=== PATIENT | male | born 1950 | race Caucasian/White ===

== ENCOUNTER 2018-09-10 00:35 | Inpatient (IN) | payer MEDICARE, MEDICAID ==
[2018-09-10] VITALS (15 sets, daily range): BP systolic 96–119; BP diastolic 38–70; BMI 26.3
[~2018-09-10] VITALS: Ht 167.6 cm; Wt 73.9 kg
--- NOTE | ~2018-09-10 | HEMODYNAMI ---
PATIENT:GENE PEREZ MEDICAL RECORD: [id number] : 50 [facility] [id number] ADMISSION DATE: 09/10/18 Generatedon:09/10/20182:31 Patient name: GENE PEREZ Patient #: [id number] SSN: : 1950 Date of study: 09/10/2018 Page: Of Hemodynamic Procedure Report Patient Data Patient Demographics Procedure consent was obtained First Name: GENE Gender: Male Last Name: CHRIS : 1950 Patient #: [id number] Age: 68 year(s) Race: Unknown Additional ID: [id number] Contact details Address: [address] [place] [address] ROAD State: [place] City: [place] Zip code: [address] Past Medical History Allergies: No known allergies Admission Admission Data Admission Date: 09/10/2018 Admission Time: 0:35 Admit Source: Emergency department Procedure Procedure Types Cath Procedure Diagnostic Procedure [facility] w/Coronaries Temporary Pacemaker PCI Procedure AMI/SVG/APPEALS SPECIALIST PTCA or Stent AMI-BMS/VIANEY Initial Procedure Description Procedure Date Procedure Date: 09/10/2018 Procedure Start Time: 1:52 Procedure End Time: 2:20 Procedure Staff Name Function Ron Muller MD Performing Physician Ruthy Tatum RT Monitor Fay Herbert RN Nurse Js Thornton RT Scrub Procedure Data Cath Procedure Fluoroscopy Diagnostic fluoroscopy Total fluoroscopy Time: 4.9 time: 4.9 min min Diagnostic fluoroscopy Total fluoroscopy dose: 418 dose: 418 mGy mGy Contrast Material Contrast Material Type Amount (ml) Isovue 300 0 Entry Location Entry Primary Successful Side Size Upsize Upsize Entry Closure Succes sful Closure Location (Fr) 1 (Fr) 2 (Fr) Remarks Device Remarks Femoral Right 6 Fr Exoseal artery Short Femoral Right 6 Fr vein Short Estimated blood loss: 10 ml Diagnostic catheters Device Type Used For End Catheter Placement MULTIPACK JL 4.0 5Fr Procedure catheter MULTIPACK 3DRC 5Fr Procedure catheter MULTIPACK Pigtail 5 Fr Procedure catheter Procedure Complications No complications Procedure Medications Medication Administration Route Dosage Oxygen NRB 16 l/min Lidocaine 2% added to field 20 Heparin Flush Bag added to field 2 bags (1000units/500ml NS) 0.9% NaCl I.V. bolus 500 ml Dopamine I.V. drip 10 mcg/kg/min (400mg/250ml D5W) Integrilin (Bolus I.V. 6.8 ml 2mg/ml) Atropine I.V. 1 mg Heparin Bolus I.V. 3000 units Phenergan 25 mg Hemodynamics Rest Heart Rate: 60 (bpm) Pressure Samples Time Site Value (mmHg) Purpose Heart Use Rate(bpm) 2:13 LV 126/10,12 Snapshot 145 2:13 AO 115/62(89) Pullback 133 2:13 LV 120/15,20 Pullback 133 Gradients Valve Time Site 1 Site 2 Mean SEP/DFP Peak To Heart Use (mmHg) (sec/min) Peak Rate (mmHg) (bpm) Aortic 2:13 LV AO 8 15 5 133 120/15,20 115/62(89) Calculations Valve P-P Mean Valve Index Valve Source Name Gradient Area Flow (cm2) Aortic 5 8 5 8 Snapshots Pre Cath Intra NCS Post Cath Vital Signs Time Heart Resp SPO2 NIBP Rhythm Pain Sedation Rate (ipm) (%) (mmHg) Status Level (bpm) 1:53:18 59 21 99 116/53(75) NSR 0 (11) 10(A) , No pain 1:57:32 80 25 100 95/49(68) NSR 0 (11) 10(A) , No pain 2:01:37 80 23 100 102/55(73) NSR 0 (11) 10(A) , No pain 2:06:41 122 30 100 112/60(77) NSR 0 (11) 10(A) , No pain 2:10:57 106 24 100 87/45(69) NSR 0 (11) 10(A) , No pain 2:15:43 136 32 100 128/84(99) NSR 0 (11) 10(A) , No pain 2:19:55 134 28 100 132/66(93) NSR 0 (11) 10(A) , No pain Medications Time Medication Route Dose Verified Delivered Reason No ashtyn Effectiveness by by 1:31:05 0.9% NaCl I.V. 500 ml Ron Aponte Per physician bolus [facility] Arcadio Herbert RN, MD 1:31:42 Oxygen NRB 16 l/min Ron Aponte for low [address] Arcadio Herbert RN, MD 1:31:51 Lidocaine 2% added 20ml vial Ron Velasquez for local to [facility] anesthetic field MD MOY 1:31:56 Heparin Flush added 2 bags Ron Velasquez used for Bag to [facility] procedure (1000units/500ml field MD MOY NS) 1:54:58 Dopamine I.V. 10 Ron Aponte Per physician (400mg/250ml drip mcg/kg/min [facility] Arcadio Herbert RN D5W) 1:59:58 Integrilin I.V. 6.8 ml Ron Aponte for Wa sted (Bolus 2mg/ml) [facility] Arcadio Herbert RN antiplatelet 3.2 ml therapy of vial 2:04:45 Atropine I.V. 1 mg Ron Aponte Per physician [facility] Arcadio Herbert RN, MD 2:09:56 Heparin Bolus I.V. 3000 units Ron Aponte for ve rified [facility] Arcadio Herbert RN anticoagulation with dr MD samuels 2:23:37 Phenergan I.M. 25 mg Ron Aponte for vomiting to lt [facility] Arcadio Herbert RN gm Procedure Log Time Note 1:17:01 Admit Source: Emergency department 1:30:36 Diagnostic Cath status Emergency 1:30:38 Fay Herbert RN sent for patient. Start room use. 1:30:40 Time tracking: Call back (After hours or weekends) 1:30:46 Plan of Care:Hemodynamics will remain stable., Cardiac rhythm will remain stable., Comfort level will be maintained., Respiratory function will remain adequate., Patient/ family verbilizes understanding of procedure., Procedure tolerated without complication., Recovers from procedure without complications.. 1:30:48 Patient arrives emergently. 1:30:52 Patient received from ED to CCL 1 Alert and oriented. Tansferred to table in Supine position. 1:30:54 Warm blankets applied, and shashi hugger turned on for patient comfort. 1:30:54 Correct patient and procedure confirmed by team. 1:30:56 Signed procedure consent form obtained from patient. 1:31:02 H&P Date Dictated: 09/10/2018 Emergent; H&P N/A. 1:31:05 0.9% NaCl 500 ml I.V. bolus was administered by Fay Herbert RN; Per physician; 1:31:05 Pre-procedure instructions explained to patient. 1:31:24 Use device set Femoral Dx 1:31:26 ACIST Syringe (67113) opened to sterile field. 1:31:26 Bag Decanter (2002S) opened to sterile field. 1:31:27 Medline Cath Pack ([id number]) opened to sterile field. 1:31:27 DIAGNOSTIC WIRE .035 260cm J wire (392408) opened to sterile field. 1:31:29 ACIST Hand Control (96733) opened to sterile field. 1:31:29 ACIST Manifold (19316) opened to sterile field. 1:31:38 Tegaderm 4 x 4 (1626W) opened to sterile field. 1:31:40 DIAGNOSTIC Multipack 5Fr catheter set (BQ9073) opened to sterile field. 1:31:42 Oxygen 16 l/min NRB was administered by Fay Herbert RN; for low 02 sats; 1:31:51 Lidocaine 2% 20ml vial added to field was administered by Ron Muller MD; for local anesthetic; 1:31:56 Heparin Flush Bag (1000units/500ml NS) 2 bags added to field was administered by oRn Muller MD; used for procedure; 1:32:03 WHISPER 300cm guide wire ([id number]) opened to sterile field. 1:32:04 INFLATOR Merit BasixCompak (CG0706) opened to sterile field. 1:32:05 SHEATH 6FR [place] (AFN265) opened to sterile field. 1:50:21 ECG and BP/O2 sat monitors applied to patient. 1:50:22 Vital chart was started 1:50:23 Baseline sample Acquired. 1:50:31 Rhythm: paced 1:50:32 Full Disclosure recording started 1:50:37 Family unavailable. 1:50:49 Patient allergic to No known allergies 1:50:52 Was the patient premedicated? Yes 1:50:56 Is patient on blood thinner?No 1:50:59 Patient diabetic? No. 1:51:48 Snore? Yes 1:51:49 Sleep apnea? No 1:51:58 Patient pain scale 5/10 ?. 1:52:16 IV patent on arrival in Right upper arm with 0.9% NaCl at O. 1:52:24 Lab results completed and on chart, pending. 1:52:29 Right groin area was prepped with chlora-prep and draped in sterile fashion 1:52:30 Alarms reviewed by R. N. 1:52:30 Sharps counted by scrub and verified by R.N. 1:52:32 Physician arrived 1:52:32 --------ALL STOP TIME OUT------ 1:52:34 Final Timeout: patient, procedure, and site verified with staff and physician. All members of the team are in agreement. 1:52:36 Right groin site verified by team. 1:52:42 Physical assessment completed. ASA score P 4 - A patient with severe systemic disease that is a constant threat to life as per Ron Muller MD. 1:52:51 Procedure started. 1:52:56 Local anesthetic to right femoral artery with Lidocaine 2% by Ron Muller MD.INITIAL ACCESS ONLY 1:53:05 A 6 Fr Short sheath was inserted into the Right Femoral artery 1:54:25 A 6 Fr Short sheath was inserted into the Right Femoral vein 1:54:29 J wire advanced. 1:54:35 5Fr J Tip Temporary Pacing Catheter ([id number]) opened to sterile field. 1:54:52 Temporary pacer inserted 1:54:58 Dopamine (400mg/250ml D5W) 10 mcg/kg/min I.V. drip was administered by Fay Herbert RN; Per physician; 1:55:36 SHEATH 6FR [place] (WUD863) opened to sterile field. 1:57:42 Temporary pacer turned on with the following settings: Rate 80, MA 2, Mode: Demand. 1:59:14 A MULTIPACK JL 4.0 5Fr catheter was advanced over the wire and used for Procedure. 1:59:18 LCA angiography performed. 1:59:41 Catheter removed. 1:59:49 A MULTIPACK 3DRC 5Fr catheter was advanced over the wire and used for Procedure. 1:59:52 RCA angiography performed. 1:59:58 Integrilin (Bolus 2mg/ml) 6.8 ml I.V. was administered by Fay Herbert RN; for antiplatelet therapy; Wasted 3.2 ml of vial 2:00:45 Catheter removed. 2:02:02 GUIDE 6FR HS I SH catheter ([id number]) opened to sterile field. 2:02:27 6 Fr HS1SH guide catheter was inserted over the wire 2:02:32 Whisper wire advanced. 2:02:36 Wire advanced across lesion. 2:03:00 Inflate balloon Inflation number: 1 A EMERGE OTW 2.5 x 30 balloon ([id number]) was prepped and advanced across the Mid RCA, then inflated to 14 ELLI for 0:15 (min:sec). 2:04:45 Atropine 1 mg I.V. was administered by Fay Herbert RN; Per physician; 2:05:46 Balloon removed over the wire. 2:07:41 Place stent Inflation Number: 2 A INTEGRITY OTW 3.5 X 30 stent ([id number]) was prepped and advanced across the Mid RCA. The stent was deployed at 14 ELLI for 0:14 (min:sec). 2:09:13 Stent catheter was removed intact over wire. 2:09:56 Heparin Bolus 3000 units I.V. was administered by Fay Herbert RN; for anticoagulation; verified with dr samuels 2:10:11 Place stent Inflation Number: 1 A INTEGRITY OTW 3.5 X 18 stent ([id number]) was prepped and advanced across the Prox RCA. The stent was deployed at 14 ELLI for 0:11 (min:sec). 2:11:13 Stent catheter was removed intact over wire. 2:11:21 Guide catheter removed. 2:11:31 A MULTIPACK Pigtail 5 Fr catheter was advanced over the wire and used for Procedure. 2:11:35 LV angiography performed. 2:11:38 LV gram done using GARCIA 2:11:40 EF : 50 % 2:13:43 EXOSEAL 6Fr (EX600) opened to sterile field. 2:13:52 Catheter exchanged over wire. 2:14:06 Sheath removed intact; hemostasis achieved with Exoseal to the Right Femoral artery. 2:14:37 Procedure ended.(Physican Out) 2:14:43 Fluoroscopy time 04.90 minutes. 2:14:48 Flurop Dose total: 418 2:14:48 Fluoroscopy dose: 418 mGy 2:15:30 Contrast amount:Isovue 300 0ml. 2:16:18 Insertion/operative site no bleeding no hematoma. 2:16:35 Post-procedure physical assessment completed. ASA score P 4 - A patient with severe systemic disease that is a constant threat to life as per Ron Muller MD. 2:17:12 Post procedure rhythm: paced 2:17:15 Estimated blood loss: 10 ml 2:17:19 Post procedure instruction explained to patient.Patient verbalizes understanding. 2:18:01 Procedure type changed to Cath procedure, Diagnostic procedure, LHC, LHC w/Coronaries, Temporary Pacemaker, PCI procedure, AMI/SVG/APPEALS SPECIALIST PTCA or Stent, AMI-BMS/VIANEY Initial 2:18:13 Procedure and supply charges have been captured, reviewed, submitted and are correct. 2:19:37 Procedure Complication : No complications 2:19:48 Vital chart was stopped 2:19:55 venous line was sutured in with 2'0. 2:19:58 Pt has continued to vomit after 8 mg of zofran, and 1 mg of atropine. 2:20:04 See physician's report for complete and final results. 2:20:09 Report given to CVICU. 2:20:15 Patient transfered to CVICU with Bed. 2:20:17 Procedure ended. 2:20:17 Full Disclosure recording stopped 2:20:21 End room use (Document Last) 2:20:33 ACC-PCI Only Patient was given prescriptions, or instructed by Ron Muller MD to start/continue the following medications upon discharge: Plavix 2:23:16 Temp pacer line sutured in 2:23:37 Phenergan 25 mg I.M. to lt gm was administered by Fay Herbert RN; for vomiting; Intervention Summary Intervention Notes Time ActionType Lesion and Equipment Action# Pressure Duration Attributes Used 2:03:00 Inflate Mid RCA EMERGE OTW 1 14 00:15 balloon 2.5 x 30 balloon ([id number]) 2:07:41 Place stent Mid RCA INTEGRITY 2 14 00:14 OTW 3.5 X 30 stent ([id number]) 2:10:11 Place stent Prox RCA INTEGRITY 1 14 00:11 OTW 3.5 X 18 stent ([id number]) Device Usage Item Name Manufacture Quantity Catalog Number Hospital Part Current Min imal Lot# / Charge Number Stock Stock Serial# Code ACIST Acist 1 77065 371651 483483 455041 20 Syringe Medical (90227) Systems Inc Bag Decanter Microtek 1 775468 97810 091303 5 () Medical Inc. Medline Cath Medline 1 [id number] 662440 60132 158371 5 Pack ([id number]) DIAGNOSTIC [facility] 1 533860 167073 033829 041803 30 WIRE .035 260cm J wire (741033) ACIST Hand Acist 1 96445 832463 925772 850565 5 Control Medical (57464) Systems Inc ACIST Acist 1 05035 414401 526103 865596 5 Manifold Medical (18086) Systems Inc Tegaderm 4 x 3M 1 1626W 513787 806294 726342 5 4 (1626W) DIAGNOSTIC Cardinal 1 GB2339 372744 31427 020323 30 Multipack Health 5Fr catheter set (ZB9659) WHISPER [place] 1 [id number] 873015 404777 752241 5 300cm guide Vascular wire ([id number]) INFLATOR Trice Imaging 1 ON9184 110382 048116 922763 15 EcoVadis BasixCompak (DC2504) SHEATH 6FR Terumo 2 YZK062 401611 021283 293558 40 [place] (SAP395) MULTIPACK JL Cardinal 1 833396 5 4.0 5Fr Health catheter MULTIPACK Cardinal 1 813690 5 3DRC 5Fr Health catheter GUIDE 6FR HS Medtronic 1 [id number] 370353 02535 663202 1 I SH catheter (FN1IPDWN) EMERGE OTW [place] 1 [id number] 332542 973059 635894 5 2.5 x 30 Scientific balloon ([id number]) INTEGRITY Medtronic 1 [id number] 315415 599989 3 [id number] OTW 3.5 X 30 stent ([id number]) INTEGRITY Medtronic 1 [id number] 378212 430283 1 [id number] OTW 3.5 X 18 stent ([id number]) MULTIPACK Cardinal 1 302969 5 Pigtail 5 Fr Health catheter EXOSEAL 6Fr Cardinal 1 EX600 663305 617886 704398 10 (EX600) Health 5Fr J Tip Jean-Baptiste 1 [id number] 421792 81017 981886 2 Temporary Lifesciences Pacing Catheter ([id number]) Signature Audit [place] Stage Time Signature Unsigned Intra-Procedure 09/10/2018 Ruthy Tatum 2:31:21 AM RT(R) Signatures Monitor : Ruthy Tatum Signature : RT Date : Time : [address] [address]
[2018-09-10] MEDS ORDERED: PLAVIX75 MG PO (00:38)
[2018-09-10 01:13] LABS: BASOPHILS 0.3 % (0-2); EOSINOPHILS 0.8 % (0-7); HEMATOCRIT 44.6 % (42.0-54.0); HEMOGLOBIN 15.2 g/dL (13.5-17.5); IMMATURE GRANULOCYTES 0.6 % (0-5); LYMPHOCYTES 22.1 % (15-50); MCH 34.5 pg (26.0-34.0); MCHC 34.1 g/dL (31.0-37.0); MCV 101.4 fL (80.0-100.0); MEAN PLATELET VOLUME 10.4 fL (7.4-10.4); MONOCYTES 8.3 % (2-11); NEUTROPHILS 67.9 % (40-80); PLATELET COUNT 249 10x3/uL (130-400); RDW 12.2 % (11.5-14.5); WBC 18.6 10x3/uL (4.8-10.8)
[2018-09-10 01:21] LABS: INR 1.03 (0.85-1.17)
[2018-09-10 01:27] LABS: ALBUMIN 3.5 g/dL (3.4-5.0); ALKALINE PHOSPHATASE 90 U/L (46-116); ALT (SGPT) 19 U/L (10-68); BILIRUBIN - TOTAL 0.24 mg/dL (0.2-1.3); CALC OSMOLALITY 285 mosm/kg (275-300); CALCIUM 9.2 mg/dL (8.5-10.1); CARBON DIOXIDE 20.2 mmol/L (21.0-32.0); CHLORIDE - SERUM 103 mmol/L (98-107); CREATININE - SERUM 1.4 mg/dL (0.6-1.3); GLUCOSE 183 mg/dL (74-106); PROTEIN - SERUM 7.2 g/dL (6.4-8.2); SODIUM 140 mmol/L (136-145); UREA NITROGEN 19 mg/dL (7-18); eGFR NON AFRICAN AMERICAN 53 mL/min (90-120)
[2018-09-10 01:44] LABS: CKMB 1.4 U/L (0.0-3.6); CREATINE KINASE 75 UL (21-232); MAGNESIUM - SERUM 2.2 mg/dL (1.8-2.4)
[2018-09-10 01:49] LABS: APTT > 200.0 SECONDS (22.8-39.4)
[2018-09-10 08:05] LABS: BASOPHILS 0.1 % (0-2); EOSINOPHILS 0 % (0-7); HEMOGLOBIN 12.7 g/dL (13.5-17.5); IMMATURE GRANULOCYTES 0.3 % (0-5); LYMPHOCYTES 6.3 % (15-50); MCHC 33.4 g/dL (31.0-37.0); MCV 101.6 fL (80.0-100.0); MONOCYTES 10.3 % (2-11); RBC 3.74 10x6/uL (4.20-6.10); RDW 12.4 % (11.5-14.5)
[2018-09-10 08:09] LABS: ALBUMIN 2.7 g/dL (3.4-5.0); ANION GAP 12.2 mmol/L (8-16); BILIRUBIN - TOTAL 0.32 mg/dL (0.2-1.3); CALCIUM 7.5 mg/dL (8.5-10.1); CARBON DIOXIDE 24.2 mmol/L (21.0-32.0); CREATININE - SERUM 1.1 mg/dL (0.6-1.3); PLATELET COUNT 171 10x3/uL (130-400); POTASSIUM - SERUM 4.4 mmol/L (3.5-5.1); PROTEIN - SERUM 5.7 g/dL (6.4-8.2); WBC 9.9 10x3/uL (4.8-10.8)
--- NOTE | 2018-09-10 09:05 | OP ---
PATIENT NAME: GENE PEREZ MEDICAL RECORD: [id number] :50 LOCATION:[facility] ADMISSION DATE:09/10/18 SURGEON: ZIGGY YOUNG MD DATE OF OPERATION: 09/10/2018 PROCEDURE: Temporary pacemaker, left heart catheterization, and PTCA stenting to the right coronary artery. DESCRIPTION OF PROCEDURE: TEMPORARY PACEMAKER: After the right femoral vein was cannulated via modified Seldinger technique under fluoroscopic guidance, we placed the temporary pacing wire up into the right ventricular apex. After adequate thresholds were obtained, this was sutured in place, sed rate of 80, output of 2. Left heart catheterization, selective coronary angiography, right femoral artery approach. CATHETERS: A 6-Luxembourger sheath, 5/4 left and right Tess, 5/4 pig. The procedure was well tolerated. We proceeded to urgent PTCA stenting. FINDINGS: Left ventriculography shows inferobasal hypokinesis. Overall LV function; however, preserved at 50%. CORONARY ANATOMY: LEFT MAIN: Left main is free of disease. CIRCUMFLEX: Has a mid portion stenosis about 80%. RIGHT CORONARY ARTERY: Totally occluded, obviously infarct related artery. PLAN: Intervention to the right. DESCRIPTION: A hockey stick guide catheter provided good guide catheter followed by 300 cm Whisper wire was placed across the totally occluded right down this portion of the vessel. Pre-deployment balloon was a 2.5 x 20 mm Hays up to 14 atmospheres. This showed yazidism of CORINA flow from 0 to 3. Next, stents were placed in the following fashion: 3.5 x 30 mm Integrity followed by a 3.5 x 18 mm Integrity both stents up to 14 atmospheres for 45 seconds. Final angiography shows excellent resolution of total occlusion, no signal residual. CORINA flow improved from 0 to 3. Sheath closed with ExoSeal device. Temporary pacer will be closed hopefully in the next 12-18 hours as AV conduction returns. TRANSINT:[id number] Voice Confirmation ID: [id number] DOCUMENT ID: [id number] ZIGGY YOUNG MD at 0905 CC: [id number] DICTATION DATE: 09/10/18 0228 FAMILY SERVICES ASSISTANT: 09/10/18 0737 [facility] IN [place] [id number] [place] [address]
--- NOTE | 2018-09-10 09:05 | HP ---
PATIENT: GENE PEREZ MEDICAL RECORD: [id number] ACCOUNT: [id number] [facility] ADMISSION DATE: 09/10/18 PCP: JADON LEON HISTORY AND PHYSICAL EXAMINATION HISTORY OF PRESENT ILLNESS: History mostly was taken from the ER physician. A 68-year-old gentleman with history of coronary artery disease, status post intervention previously at the [facility]. Found down at home, found to be in a complete heart block with inferior ST-segment elevation. He was brought to lab tester on an emergent basis for temporary pacing, revascularization as indicated. PHYSICAL EXAMINATION: GENERAL: Shows an unkempt middle-aged gentleman, in moderate distress. HEENT: Normocephalic and atraumatic. Pallor is noted. NECK: JVD with tuttle A waves. HEART: Intermittently eugenia. He had a II/ systolic ejection murmur. LUNGS: Fair air excursion. EXTREMITIES: Pulses, minimally palpable. No edema. IMPRESSION: Inferior myocardial infarction and a complete heart block. Pacemaker intervention as indicated. TRANSINT:[id number] Voice Confirmation ID: [id number] DOCUMENT ID: [id number] ZIGGY YOUNG MD at 0905 CC: [id number] DICTATION DATE: 09/10/18224 UTILITY SYSTEMS REPAIRER OPERATOR: 09/10/18 0617 ADM IN [place] [id number] [place] [address]
--- NOTE | 2018-09-10 12:08 | MORECARE ---
CASE MANAGEMENT DISCHARGE SUMMARY PATIENT: GENE PEREZ UNIT: [id number] ADM DATE: 09/10/18 AGE: 68 : 50 SEX: M [facility] AUTHOR: CARROLL MTZ PHYSICIAN: REFERRING PHYSICIAN: ZIGGY YOUNG MD DATE OF SERVICE: 09/10/18 Discharge Plan Patient Name: GENE PEREZ [facility] [facility] 1950 Planned Disposition: Home Anticipated Discharge Date: Discharge Date: Expected LOS: Initial Reviewer: [email or web address] Initial Review Date: 09/10/2018 Generated: 09/10/18 1:08 pm DCPIA - Discharge Planning Initial Assessment Updated by [email or web address]: Emelina Angeles on 09/10/18 12:07 pm * Is the patient Alert and Oriented? Yes * How many steps to enter\exit or inside your home? * PCP Dr. Darrel Parker * Pharmacy [facility] [address] * Preadmission Environment Home Alone * ADLs Independent * Equipment None * List name and contact numbers for known caregivers / representatives who currently or will assist patient after discharge: Karely Raya [phone] * Verbal permission to speak to the caregivers and representatives has been obtained from the patient. N/A * Community resources currently utilized None * Additional services required to return to the preadmission environment? No * Can the patient safely return to the preadmission environment? Yes * Has this patient been hospitalized within the prior 30 days at any hospital? No Patient Name: GENE PEREZ Page 48640 at 1208 All edits/amendments must be made on the electronic document DICTATION DATE: 09/10/18 1207 FOSTER CARE SOCIAL WORKER: CONNOR 09/10/187 RPT#: [id number] DC DATE: STATUS: ADM IN [facility] [address] [place] [address] END OF REPORT
--- NOTE | 2018-09-10 12:21 | MORECARE ---
CASE MANAGEMENT DISCHARGE SUMMARY PATIENT: GENE PEREZ UNIT: [id number] ADM DATE: 09/10/18 AGE: 68 : 50 SEX: M ROOM/BED: [facility] AUTHOR: BIBI,DOC PHYSICIAN: REFERRING PHYSICIAN: ZIGGY YOUNG MD DATE OF SERVICE: 09/10/18 Discharge Plan Patient Name: GENE PEREZ Facility: [facility]:[place] : 1950 Planned Disposition: Home Anticipated Discharge Date: Discharge Date: Expected LOS: Initial Reviewer: [email or web address] Initial Review Date: 09/10/2018 Generated: 09/10/18 1:21 pm Comments DCP- Discharge Planning Updated by [email or web address]: Emelina Angeles on 09/10/18 11:[address] Patient Name: GENE PEREZ Admission Status: ER Accout number: [id number] Admission Date: 09-10-2018 : 1950 Admission Diagnosis: Attending: ZIGGY YOUNG Current LOS: 1 Anticipated DC Date: Planned Disposition: Home Primary Insurance: [facility] MEDIC[facility] SOLUTIONS Discharge Planning Comments: CM met with patient at bedside. Patient states he lives alone and is independent of ADL's. Patient states he will have a friend pick him up via private vehicle. Patient denies any discharge needs at this time. CM will continue to follow and assist as needed with discharge planning / needs. Light Cleaner: Emelina Angeles DCPIA - Discharge Planning Initial Assessment Updated by [email or web address]: Emelina Angeles on 09/10/18 12:07 pm * Is the patient Alert and Oriented? Yes * How many steps to enter\exit or inside your home? * PCP Dr. Darrel Parker * Pharmacy [facility] [address] * Preadmission Environment Home Alone * ADLs Independent * Equipment None * List name and contact numbers for known caregivers / representatives who currently or will assist patient after discharge: Karely Raya [phone] * Verbal permission to speak to the caregivers and representatives has been obtained from the patient. N/A * Community resources currently utilized None * Additional services required to return to the preadmission environment? No * Can the patient safely return to the preadmission environment? Yes * Has this patient been hospitalized within the prior 30 days at any hospital? No Last DP export: 09/10/18 11:08 am Patient Name: GENE PEREZ Page 37537 at 1221 All edits/amendments must be made on the electronic document DICTATION DATE: 09/10/181219 DOOR TO DOOR SELLING AGENT: CONNOR 09/10/180 RPT#: [id number] DC DATE: STATUS: ADM IN [facility] [address] [place] [address] END OF REPORT
[2018-09-11] VITALS: BP 101/54
[2018-09-11 05:08] VITALS: BP 110/58
[2018-09-11 09:08] VITALS: BP 109/53
[2018-09-11] MEDS ORDERED: FLOMAX0.4 MG PO (09:47)
[2018-09-11] MEDS ORDERED: ASPIRIN81 MG PO (09:47)
[2018-09-11] MEDS ORDERED: CELEXA20 MG PO (09:48)
[2018-09-11] MEDS ORDERED: ZOCOR40 MG PO (09:48)
[2018-09-11] MEDS ORDERED: LOPRESSOR25 MG PO (10:00)
[2018-09-11 10:04] VITALS: Ht 167.6 cm; Wt 73.9 kg
--- NOTE | 2018-09-11 10:35 | MORECARE ---
CASE MANAGEMENT DISCHARGE SUMMARY PATIENT: GENE PEREZ UNIT: [id number] ADM DATE: 09/10/18 AGE: 68 : 50 SEX: M ROOM/BED: D.2122 AUTHOR: BIBIDOC PHYSICIAN: REFERRING PHYSICIAN: ZIGGY YOUNG MD DATE OF SERVICE: 09/11/18 Discharge Plan Patient Name: GENE PEREZ Facility: [facility]:[place] : 1950 Planned Disposition: Home Anticipated Discharge Date: 09/11/18 Discharge Date: Expected LOS: 1 Initial Reviewer: [email or web address] Initial Review Date: 09/10/2018 Generated: 09/11/18 11:35 am DCP- Discharge Planning Updated by [email or web address]: Emelina Angeles on 09/10/18 11:[address] Patient Name: GENE PEREZ Admission Status: ER Accout number: [id number] Admission Date: 09-10-2018 : 1950 Admission Diagnosis: Attending: ZIGGY YOUNG Current LOS: 1 Anticipated DC Date: Planned Disposition: Home Primary Insurance: [facility] MEDICARE SOLUTIONS Discharge Planning Comments: CM met with patient at bedside. Patient states he lives alone and is independent of ADL's. Patient states he will have a friend pick him up via private vehicle. Patient denies any discharge needs at this time. CM will continue to follow and assist as needed with discharge planning / needs. Hearth Feeder: Emelina Angeles DCPIA - Discharge Planning Initial Assessment Updated by [email or web address]: Emelina Angeles on 09/10/18 12:07 pm * Is the patient Alert and Oriented? Yes * How many steps to enter\exit or inside your home? * PCP Dr. Darrel Parker * Pharmacy [facility] [address] * Preadmission Environment Home Alone * ADLs Independent * Equipment None * List name and contact numbers for known caregivers / representatives who currently or will assist patient after discharge: Karely Raya [phone] * Verbal permission to speak to the caregivers and representatives has been obtained from the patient. N/A * Community resources currently utilized None * Additional services required to return to the preadmission environment? No * Can the patient safely return to the preadmission environment? Yes * Has this patient been hospitalized within the prior 30 days at any hospital? No Coverage Notice Reviewer: [email or web address] Rubi Carlisle Notice Issued Date-Time: 09/11/2018 10:05 Notice Type: IM Discharge Notice Notice Delivered To: Patient Relationship to Patient: Pack Operator Name: Delivery Method: HAND - Hand Delivered Daylin Days: Prior Verbal Notification: Recipient Understood Notice: Yes Recipient Signature: Yes Med Rec Note Co-signed by Attending: Coverage Notice Comment: Last DP export: 09/10/18 11:21 am Patient Name: GENE PEREZ Page 13411 at 1035 All edits/amendments must be made on the electronic document DICTATION DATE: 09/11/18 1034 PORCELAIN TURNER: CONNOR 09/11/18 1034 RPT#: [id number] DC DATE: STATUS: ADM IN [facility] [address] [place] [address] END OF REPORT
--- NOTE | 2018-09-11 10:45 | MORECARE ---
CASE MANAGEMENT DISCHARGE SUMMARY PATIENT: GENE PEREZ UNIT: [id number] ADM DATE: 09/10/18 AGE: 68 : 50 SEX: M ROOM/BED: D.9602 AUTHOR: CARROLL MTZ PHYSICIAN: REFERRING PHYSICIAN: ZIGGY YOUNG MD DATE OF SERVICE: 09/11/18 Discharge Plan Patient Name: GENE PEREZ Facility: [facility]:[place] : 1950 Planned Disposition: Home Anticipated Discharge Date: 09/11/18 Discharge Date: Expected LOS: 1 Initial Reviewer: [email or web address] Initial Review Date: 09/10/2018 Generated: 09/11/18 11:44 am Comments DCP- Discharge Planning Updated by [email or web address]: Blayne Carlisle on 09/11/18 9:[address] Patient Name: GENE PEREZ Encounter No: [id number] : 1950 Primary Insurance: [facility] MEDICARE SOLUTIONS Anticipated DC Date: 09-11-2018 Planned Disposition: Home DCP follow-up note: CM RECEIVED DISCHARGE ORDER, MET WITH PT IN ROOM TO DISCUSS DISCHARGE NEEDS AND PLANNING. CM DISCUSSED AVAILABILITY OF HOME HEALTH, REHAB SERVICES AND MEDICAL EQUIPMENT. PT DENIES DISCHARGE NEEDS. BROTHER TO TRANSPORT HOME AT DISCHARGE TODAY. IMPORTANT MESSAGE FROM MEDICARE PROVIDED AND EXPLAINED. CO OP NURSE NOTIFIED. TRAV BLANDON DCP- Discharge Planning Updated by [email or web address]: Emelina Angeles on 09/10/18 11:[address] Patient Name: GENE PEREZ Admission Status: ER Accout number: [id number] Admission Date: 09-10-2018 : 1950 Admission Diagnosis: Attending: ZIGGY YOUNG Current LOS: 1 Anticipated DC Date: Planned Disposition: Home Primary Insurance: [facility] MEDICARE SOLUTIONS Discharge Planning Comments: CM met with patient at bedside. Patient states he lives alone and is independent of ADL's. Patient states he will have a friend pick him up via private vehicle. Patient denies any discharge needs at this time. CM will continue to follow and assist as needed with discharge planning / needs. Labor And Delivery Nurse: Emelina Angeles DCPIA - Discharge Planning Initial Assessment Updated by [email or web address]: Emelina Angeles on 09/10/18 12:07 pm * Is the patient Alert and Oriented? Yes * How many steps to enter\exit or inside your home? * PCP Dr. Darrel Parker * Pharmacy [facility] [address] * Preadmission Environment Home Alone * ADLs Independent * Equipment None * List name and contact numbers for known caregivers / representatives who currently or will assist patient after discharge: Karely Raya [phone] * Verbal permission to speak to the caregivers and representatives has been obtained from the patient. N/A * Community resources currently utilized None * Additional services required to return to the preadmission environment? No * Can the patient safely return to the preadmission environment? Yes * Has this patient been hospitalized within the prior 30 days at any hospital? No Coverage Notice Reviewer: [email or web address] Rubi Carlisle Notice Issued Date-Time: 09/11/2018 10:05 Notice Type: IM Discharge Notice Notice Delivered To: Patient Relationship to Patient: Fiscal Specialist Name: Delivery Method: HAND - Hand Delivered Daylin Days: Prior Verbal Notification: Recipient Understood Notice: Yes Recipient Signature: Yes Med Rec Note Co-signed by Attending: Coverage Notice Comment: Last DP export: 09/11/18 9:35 am Patient Name: GENE PEREZ Page 07123 at 1045 All edits/amendments must be made on the electronic document DICTATION DATE: 09/11/18 1044 CABLE MECHANIC: CONNOR 09/11/18 1044 RPT#: [id number] DC DATE: STATUS: ADM IN [facility] [address] [place] [address] END OF REPORT
[2018-09-12] MEDS ORDERED: CELEXA20 MG PO (13:41)
[2018-09-12] MEDS ORDERED: ZOCOR40 MG PO (13:43)
[2018-09-12] MEDS ORDERED: NORCO 10-325 TA1 TAB PO (13:44)
== END 2018-09-11 12:13 | disposition home or self-care (01) | DRG 249 ==
LOC: D.ER 00:35 → D.CATH 00:35 → EDSTATUS 01:55 → D.SDCHOLD 02:20 → D.CVICU 02:20 → D.M2 17:02
PROVIDERS: Emergency Medicine; ADMIT Internal Medicine Interventional Cardiology
PROC: B2111ZZ Fluoroscopy of Multiple Coronary Arteries using Low Osmolar Contrast (ICD-10-PCS; 2018-09-10)
PROC: B2151ZZ Fluoroscopy of Left Heart using Low Osmolar Contrast (ICD-10-PCS; 2018-09-10)
PROC: 02703EZ Dilation of Coronary Artery, One Artery with Two Intraluminal Devices, Percutaneous Approach (ICD-10-PCS; principal; 2018-09-10 01:30)
PROC: 5A1223Z Performance of Cardiac Pacing, Continuous (ICD-10-PCS; 2018-09-10 01:30)
PROC: 4A023N7 Measurement of Cardiac Sampling and Pressure, Left Heart, Percutaneous Approach (ICD-10-PCS; 2018-09-10 01:30)
DX: I21.19 ST elevation (STEMI) myocardial infarction involving other coronary artery of inferior wall (principal); I44.2 Atrioventricular block, complete; I25.10 Atherosclerotic heart disease of native coronary artery without angina pectoris; I95.9 Hypotension, unspecified; R00.1 Bradycardia, unspecified

== ENCOUNTER 2018-09-12 09:29 | Inpatient (IN) | payer MEDICARE, MEDICAID ==
[~2018-09-12] VITALS: Ht 167.6 cm; Wt 70.3 kg
[2018-09-12] VITALS (7 sets, daily range): BP systolic 112–144; BP diastolic 47–99; Ht 167.6 cm; Wt 70.3 kg
--- NOTE | ~2018-09-12 | CN ---
PATIENT NAME:GENE PEREZ MEDICAL RECORD: [id number] : [birth year] [facility] ADMIT DATE: 09/12/18 ACCOUNT: [id number] CONSULTING PHYSICIAN: JESSICA WINN MD REFERRING PHYSICIAN: CAMILO BENTLEY MD DATE OF CONSULTATION: 09/12/2018 CARDIOLOGY CONSULTATION DIAGNOSES: 1. Shortness of breath, dyspnea on exertion. 2. Pulmonary edema, congestive heart failure. 3. Coronary artery disease. 4. 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 5. Possible pneumonia. 6. Smoking history. 7. Hypertension. 8. Hyperlipidemia. HISTORY OF PRESENT ILLNESS: Mr. Perez presents with increasing shortness of breath. He does not complain of chest pain. He had presented last week with chest pain and was found to have an acute inferior myocardial infarction. Dr. Schrader did PTCA and stent of his RCA. His EKG is with no acute ST-T changes. His BNP is elevated and chest x-ray compatible with pulmonary edema and/or possible pneumonia. He has been taking the Plavix and aspirin as prescribed. PHYSICAL EXAMINATION: GENERAL APPEARANCE: Well-nourished, well-developed, appears stated age. Level of distress, comfortable. PSYCHIATRIC: Mental status, alert, normal affect. Orientation, oriented to time, place and person. EYES: Lids and conjunctiva, noninjected. No discharge, no pallor. ENT: Lips, teeth, gums, normal dentition. Oropharynx, no cyanosis, no pallor. NECK: Carotid arteries, bilateral normal upstroke, no bruits, no thrills. JUGULAR VEINS: No jugular venous pressure or distention. CERVICAL LYMPH NODES: Nontender, nonenlarged. THYROID: Not enlarged. Nontender. No nodules. LUNGS: Respiratory effort, unlabored. CHEST: Normal curvature. No thoracic deformity. No chest wall tenderness. Percussion, resonant. Auscultation, clear. No wheezes, no rales, no rhonchi. CARDIOVASCULAR: Precordial exam, nondisplaced. No heaves or pericardial thrills. Rate and rhythm, regular. Heart sounds, normal S1, normal S2. No S3, no gallop, no rub. Systolic murmur, not heard. Diastolic murmur, not heard. EXTREMITIES: No cyanosis, no edema. Peripheral pulses, full and equal in all extremities, except as noted. No bruits appreciated. ABDOMEN: Soft, nondistended. Normal aorta. No bruit. Nontender. No masses. Liver, nontender, no hepatomegaly. Spleen, nontender, no splenomegaly. MUSCULOSKELETAL: No joint tenderness. No joint swelling. No erythema. NEUROLOGICAL: Normal gait, normal strength, normal tone. SKIN: Warm and dry. OVERALL IMPRESSION: Shortness of breath, dyspnea on exertion. I do not think he closed down his previous stents as he has no acute ST-T changes and had no chest pain. He was having chest pain before. Most likely he has heart failure from ischemic cardiomyopathy. Previously, his ejection fraction was 50%, but CONSULT REPORT [id number] GENE PEREZ that was with the acute RI. Even though there was intervention, most likely there was continued myocardial damage. We will reassess the ejection fraction with an echo. We will treat him symptomatically for heart failure with diuretics. If he has a low ejection fraction, would add an inotrope as well. TRANSINT:[id number] Voice Confirmation ID: [id number] DOCUMENT ID: [id number] JESSICA WINN MD CC: [id number] DICTATION DATE: 09/12/18 1131 MARINE DIVER: 09/12/18 1144 ADM IN [facility] [address] [place] [address]
--- NOTE | ~2018-09-12 | EC ---
PATIENT:GENE PEREZ DATE OF SERVICE: 09/12/18 SEX: M MEDICAL RECORD: [id number] DATE OF : [birth year] LOCATION:D.M2 D.212 AGE OF PATIENT: 68 ADMISSION DATE: 09/12/18 REFERRING PHYSICIAN: INTERPRETING PHYSICIAN: JESSICA CONTRERAS MD ECHOCARDIOGRAM REPORT ECHO CHARGES 4 ECHO COMPLETE Date: 09/12/18 CLINICAL DIAGNOSIS: PNEUMONIA/CAD/ASSESS EF ECHOCARDIOGRAPHIC MEASUREMENTS (adult normal given) AC root (d.<3.7cm) 3.7 cm LV Septum d (<1.2 cm> 1.4 cm Valve Excursion 2.1 cm LV Septum (systole) 1.9 cm Left Atria (s.<4.0cm> 3.5 cm LVPW d(<1.2cm) 1.8 cm RV (d.<2.3cm) 3.8 cm LVPW (sytole) 2.0 cm LV diastole(<5.6CM) 4.2 cm MV E-F(>70mm/sec) cm LV systole 3.0 cm LVOT Diameter 1.8 cm MV exc.(>10mm) cm Est.ejection fraction (50-75%) % DOPPLER: LVIT cm/sec A 74.0 cm/sec E 85.0 cm/sec LA cm/sec RVSP 26 mmHg LVOT 78 cm/sec AOP1/2T m/s Asc. Ao 100 cm/sec RVOT 87 cm/sec RA cm/sec PA 100 cm/sec AV Gradient Peak 3.99 mmHg AV Mean 2.12 mmHg AV Area 1.8 cm MV Gradient Peak 2.87 mmHg MV Mean 0.94 mmHg MV Area cm COMMENTS: Cement Production Plant Operator: Katelynn FREGOSO Automotive Sales Professional: 1 Dr. Contreras TAPE# PACS Pericardial Effusion N DATE OF SERVICE: 09/12/2018 DATE OF SERVICE: 09/12/2018 FINDINGS: 1. Left ventricular chamber size is within normal limits. Left ventricular systolic function is normal. Overall ejection fraction estimated at 60%. 2. Left atrium, right atrium, and right ventricle chamber sizes are within normal limits. 3. Valvular structures have normal structure and motion. ECHOCARDIOGRAM REPORT [id number] GENE PEREZ 4. Doppler interrogation reveals mild mitral regurgitation, no other valvular insufficiency or stenosis. Pulmonary systolic pressure is estimated at 26 mmHg. 5. No evidence of pericardial effusion or left ventricular thrombus. TRANSINT:[id number] Voice Confirmation ID: [id number] DOCUMENT ID: [id number] JESSICA CONTRERAS MD CC: [id number] DICTATION DATE: 09/12/18 1545 TRUCK MECHANIC: 09/12/18 213 ADM IN [facility] [address] [place] [address]
[~2018-09-12 09:29] MED LIST: ASPIRIN81 MG PO; CELEXA20 MG PO; FLOMAX0.4 MG PO; LOPRESSOR25 MG PO; PLAVIX75 MG PO; ZOCOR40 MG PO
[2018-09-12 10:04] LABS: BASOPHILS 0.2 % (0-2); EOSINOPHILS 0.1 % (0-7); HEMATOCRIT 39.7 % (42.0-54.0); HEMOGLOBIN 13.5 g/dL (13.5-17.5); IMMATURE GRANULOCYTES 0.4 % (0-5); LYMPHOCYTES 20.4 % (15-50); MCH 33.8 pg (26.0-34.0); MCV 99.5 fL (80.0-100.0); NEUTROPHILS 66.9 % (40-80); PLATELET COUNT 169 10x3/uL (130-400); RBC 3.99 10x6/uL (4.20-6.10); RDW 12.1 % (11.5-14.5); WBC 9.4 10x3/uL (4.8-10.8)
[2018-09-12 10:19] LABS: ALKALINE PHOSPHATASE 65 U/L (46-116); ALT (SGPT) 51 U/L (10-68); BILIRUBIN - TOTAL 0.71 mg/dL (0.2-1.3); CALC OSMOLALITY 287 mosm/kg (275-300); CALCIUM 8.6 mg/dL (8.5-10.1); CARBON DIOXIDE 25.7 mmol/L (21.0-32.0); CHLORIDE - SERUM 106 mmol/L (98-107); CREATININE - SERUM 1.2 mg/dL (0.6-1.3); GLUCOSE 113 mg/dL (74-106); POTASSIUM - SERUM 3.6 mmol/L (3.5-5.1); PROTEIN - SERUM 6.5 g/dL (6.4-8.2); SODIUM 143 mmol/L (136-145); UREA NITROGEN 18 mg/dL (7-18); eGFR NON AFRICAN AMERICAN 64 mL/min (90-120)
[2018-09-12 10:40] LABS: LIPASE 106 U/L (73-393); PRO BNP 3993 pg/mL (0-125); THYROID STIMULATING HORMONE 4.66 uIU/mL (0.36-3.74)
[2018-09-12 10:41] LABS: CREATINE KINASE 1124 UL (21-232)
[2018-09-12 10:43] LABS: CKMB 5.2 U/L (0.0-3.6)
[2018-09-12 10:57] LABS: TROPONIN-I 14.474 ng/mL (0.000-0.060)
--- NOTE | 2018-09-12 13:06 | NUR ---
AZITHROMYCIN COMPLETED.
[2018-09-12] MEDS ORDERED: CELEXA20 MG PO (13:41)
[2018-09-12] MEDS ORDERED: ZOCOR40 MG PO (13:43)
[2018-09-12] MEDS ORDERED: NORCO 10-325 TA1 TAB PO (13:44)
--- NOTE | 2018-09-12 14:05 | NUR ---
PT ARRIVED FROM ER VIA WC. O2 ON. SEE ASSESSMENT FOR FURTHER EVAL.
[2018-09-12 15:51] LABS: CKMB 5.7 U/L (0.0-3.6)
[2018-09-12 15:52] LABS: CREATINE KINASE 995 UL (21-232); TROPONIN-I 12.246 ng/mL (0.000-0.060)
--- NOTE | 2018-09-12 15:55 | NUR ---
LYING QUIETLY WITH HOB UP. TELEMERTY SHOWS SR WILL MONITOR
--- NOTE | 2018-09-12 16:19 | MORECARE ---
CASE MANAGEMENT DISCHARGE SUMMARY PATIENT: GENE PEREZ UNIT: [id number] ADM DATE: 09/12/18 AGE: 68 : 50 SEX: M ROOM/BED: D.2122 AUTHOR: CARROLL MTZ PHYSICIAN: REFERRING PHYSICIAN: CAMILO BENTLEY MD DATE OF SERVICE: 09/12/18 Discharge Plan Patient Name: GENE PEREZ [facility] [facility] 1950 Planned Disposition: Assisted Living Anticipated Discharge Date: 09/14/18 Discharge Date: Expected LOS: 2 Initial Reviewer: [email or web address] Initial Review Date: 09/12/2018 Generated: 09/12/18 5:19 pm DCPIA - Discharge Planning Initial Assessment Updated by [email or web address]: Qiana Barillas on 09/12/18 4:16 pm * Is the patient Alert and Oriented? Yes * How many steps to enter\exit or inside your home? * PCP Dr. Parker * Pharmacy [facility] * Preadmission Environment Home Alone * ADLs Independent * Equipment None * List name and contact numbers for known caregivers / representatives who currently or will assist patient after discharge: Hugh Perez - brother- [phone] Karely Ny - friend- [phone] * Verbal permission to speak to the caregivers and representatives has been obtained from the patient. Yes * Community resources currently utilized None * Additional services required to return to the preadmission environment? No * Can the patient safely return to the preadmission environment? Yes * Has this patient been hospitalized within the prior 30 days at any hospital? Yes Patient Name: GENE PEREZ Page 66486 at 1619 All edits/amendments must be made on the electronic document DICTATION DATE: 09/12/181617 OCULAR PATHOLOGIST: CONNOR 09/12/181617 RPT#: [id number] DC DATE: STATUS: ADM IN [facility] [address] [place] [address] END OF REPORT
--- NOTE | 2018-09-12 16:27 | MORECARE ---
CASE MANAGEMENT DISCHARGE SUMMARY PATIENT: GENE PEREZ UNIT: [id number] ADM DATE: 09/12/18 AGE: 68 : 50 SEX: M ROOM/BED: D.2852 AUTHOR: BIBI,DOC PHYSICIAN: REFERRING PHYSICIAN: CAMILO BENTLEY MD DATE OF SERVICE: 09/12/18 Discharge Plan Patient Name: GENE PEREZ Facility: [facility]:[place] : 1950 Planned Disposition: Assisted Living Anticipated Discharge Date: 09/14/18 Discharge Date: Expected LOS: 2 Initial Reviewer: [email or web address] Initial Review Date: 09/12/2018 Generated: 09/12/18 5:27 pm DCP- Discharge Planning Updated by [email or web address]: Qiana Barillas on 09/12/18 3:[address] Patient Name: GENE PEREZ Admission Status: ER Accout number: [id number] Admission Date: 09-12-2018 : 1950 Admission Diagnosis: Attending: CAMILO BENTLEY Current LOS: 1 Anticipated DC Date: 09-14-2018 Planned Disposition: Assisted Living Primary Insurance: [facility] MEDICARE SOLUTIONS Discharge Planning Comments: CM met with patient to complete initial dc planning assessment. CM educated patient on the CM role and verbal consent given by patient to complete assessment. Patient lives at home alone and reports he is independent in his care at home. At discharge patient plans to return home and feels this is a safe discharge. Patient denied known discharge needs at this time. CM will continue to follow and will assist as needed with dc plans/needs. Nursing Educator: Qiana Barillas RN, [facility] DCPIA - Discharge Planning Initial Assessment Updated by [email or web address]: Qiana Barillas on 09/12/18 4:16 pm * Is the patient Alert and Oriented? Yes * How many steps to enter\exit or inside your home? * PCP Dr. Parker * Pharmacy [facility] [address] * Preadmission Environment Home Alone * ADLs Independent * Equipment None * List name and contact numbers for known caregivers / representatives who currently or will assist patient after discharge: Hugh Perez - brother- [phone] Karely Ny - friend- [phone] * Verbal permission to speak to the caregivers and representatives has been obtained from the patient. Yes * Community resources currently utilized None * Additional services required to return to the preadmission environment? No * Can the patient safely return to the preadmission environment? Yes * Has this patient been hospitalized within the prior 30 days at any hospital? Yes Last DP export: 09/12/18 3:19 pm Patient Name: GENE PEREZ Page 51045 at 1627 All edits/amendments must be made on the electronic document DICTATION DATE: 09/12/181626 FUEL BUYER: CONNOR 09/12/181626 RPT#: [id number] DC DATE: STATUS: ADM IN [facility] [address] [place] [address] END OF REPORT
--- NOTE | 2018-09-12 19:30 | NUR ---
RESUMING PATIENT CARE. PATIENT IS ALERT AND ORIENTED, SITTING UP IN BED. RESPIRATIONS ARE EVEN AND UNLABORED. PATIENT STATED THAT HE HAD A LITTLE PANIC ATTACK AND REALLY WANTED A CIGARETTE. OFFERED TO CALL TO GET A NICOTINE PATCH. HE SAID "NO" HE DIDN'T WANT THE PATCH. NO S/S OF DISTRESS. NO C/O PAIN. PATIENT BOARD UPDATED. CALL LIGHT WITHIN REACH. WILL CPOC.
[2018-09-12 21:26] LABS: CKMB 4.6 U/L (0.0-3.6); CREATINE KINASE 861 UL (21-232)
[2018-09-13] VITALS (8 sets, daily range): BP systolic 99–112; BP diastolic 45–55
--- NOTE | 2018-09-13 01:30 | NUR ---
SALES INTERN REPORTED THAT PATIENT WAS UPSET THAT SHE WOKE HIM UP FOR THE 0000 VIALS. PATIENT TOLD HER HE WANTED A DUE NOT DISTURB SIGN ON THE DOOR.
[2018-09-13 06:10] LABS: BASOPHILS 0.2 % (0-2); EOSINOPHILS 1.1 % (0-7); HEMATOCRIT 35.7 % (42.0-54.0); HEMOGLOBIN 11.9 g/dL (13.5-17.5); IMMATURE GRANULOCYTES 0.2 % (0-5); LYMPHOCYTES 20.9 % (15-50); MCH 33.1 pg (26.0-34.0); MCHC 33.3 g/dL (31.0-37.0); MCV 99.4 fL (80.0-100.0); MEAN PLATELET VOLUME 10.4 fL (7.4-10.4); MONOCYTES 12.3 % (2-11); NEUTROPHILS 65.3 % (40-80); PLATELET COUNT 159 10x3/uL (130-400); RBC 3.59 10x6/uL (4.20-6.10); RDW 12.1 % (11.5-14.5); WBC 9.3 10x3/uL (4.8-10.8)
[2018-09-13 07:08] LABS: CALC OSMOLALITY 283 mosm/kg (275-300); CALCIUM 8.2 mg/dL (8.5-10.1); CARBON DIOXIDE 22.7 mmol/L (21.0-32.0); CHLORIDE - SERUM 105 mmol/L (98-107); CKMB 3.1 U/L (0.0-3.6); CREATINE KINASE 690 UL (21-232); CREATININE - SERUM 1.3 mg/dL (0.6-1.3); GLUCOSE 139 mg/dL (74-106); POTASSIUM - SERUM 3.1 mmol/L (3.5-5.1); SODIUM 141 mmol/L (136-145); UREA NITROGEN 15 mg/dL (7-18); eGFR NON AFRICAN AMERICAN 58 mL/min (90-120)
[2018-09-13 07:10] LABS: TROPONIN-I 8.705 ng/mL (0.000-0.060)
--- NOTE | 2018-09-13 07:10 | NUR ---
PATIENT LAYING IN BED WATCHING TV. PATIENT IS STABLE AND VITAL SIGNS ARE GOOD. PATTIENT DENIES ANY NEEDS OR PAIN. WILL CONTINUE WITH PLAN OF CARE
--- NOTE | 2018-09-13 10:33 | NUR ---
PATIENT UP WALIKING THE UNIT. DENIES ANY NEEDS OR PAIN. WILL CONTINUE TO MONITOR.
[2018-09-13 12:31] LABS: PLT FUNCT.(P2Y12) PLAVIX 72 PRU (194-418)
[2018-09-13 16:49] LABS: APPEARANCE CLEAR (CLEAR); COLOR STRAW (YELLOW)
[2018-09-13 16:50] LABS: BILIRUBIN NEGATIVE (NEGATIVE); GLUCOSE NEGATIVE (NEGATIVE); KETONE NEGATIVE (NEGATIVE); NITRITE NEGATIVE (NEGATIVE); PROTEIN NEGATIVE (NEGATIVE); UROBILINOGEN NORMAL (NORMAL)
--- NOTE | 2018-09-13 20:00 | NUR ---
INITIAL ROUNDS AND ASSESSMENT COMPLETED. SALINE LOCK TO RFA. NONLABORED RESPIRATIONS ON ROOM AIR. AMBULATORY. SIDERAILS UP X 2, CALL LIGHT IN REACH. MONITOR AND CPOC.
[2018-09-14 00:30] VITALS: BP 103/45
[2018-09-14 04:45] VITALS: BP 100/51
[2018-09-14 06:25] LABS: BASOPHILS 0.3 % (0-2); EOSINOPHILS 2.2 % (0-7); HEMATOCRIT 39.6 % (42.0-54.0); HEMOGLOBIN 13.4 g/dL (13.5-17.5); IMMATURE GRANULOCYTES 0.2 % (0-5); LYMPHOCYTES 18.9 % (15-50); MCH 33.7 pg (26.0-34.0); MCHC 33.8 g/dL (31.0-37.0); MCV 99.5 fL (80.0-100.0); MEAN PLATELET VOLUME 10.4 fL (7.4-10.4); MONOCYTES 11.6 % (2-11); NEUTROPHILS 66.8 % (40-80); RBC 3.98 10x6/uL (4.20-6.10); RDW 12.2 % (11.5-14.5); WBC 9.2 10x3/uL (4.8-10.8)
[2018-09-14 06:32] LABS: PLATELET COUNT 202 10x3/uL (130-400)
[2018-09-14 06:40] LABS: ANION GAP 15.6 mmol/L (8-16); CALCIUM 8.5 mg/dL (8.5-10.1); CARBON DIOXIDE 24.9 mmol/L (21.0-32.0); CREATININE - SERUM 1.3 mg/dL (0.6-1.3); POTASSIUM - SERUM 3.5 mmol/L (3.5-5.1)
--- NOTE | 2018-09-14 07:15 | NUR ---
REPORT RECIEVED FROM POLICE INVESTIGATOR. PATIENT IS STABLE AND VITAL SIGNS ARE GOOD. WILL CONTINUE WITH PLAN OF CARE.
[2018-09-14 08:25] VITALS: BP 93/53
--- NOTE | 2018-09-14 10:00 | NUR ---
MERRILL IYERN TO ROOM. NEW ORDERS RECEIVED FOR PATIENT DC.
[2018-09-14 11:38] VITALS: BP 106/52
[2018-09-14] MEDS ORDERED: LEVAQUIN750 MG PO (12:02)
--- NOTE | 2018-09-14 12:47 | NUR ---
PATIENT SITTING UP IN BEDSIDE CHAIR EATING LUNCH WAITING DC/D AND RIDE.
--- NOTE | 2018-09-14 13:25 | NUR ---
PATIENT IS STABLE AND VITAL SIGNS AE GOOD. INFORMED PATIENT OF DC INSTRUCTIONS AND PATIENT VERBALIZED UNDERSTANDING. PATIENT REFUSES WHEELCHAIR FOR DC. PATIENT DCTO HOME FOR SELF CARE VIA PRIVATE VEHICLE.
--- NOTE | 2018-09-15 12:33 | MORECARE ---
CASE MANAGEMENT DISCHARGE SUMMARY PATIENT: GENE PEREZ UNIT: [id number] ADM DATE: 09/12/18 AGE: 68 : 50 SEX: M ROOM/BED: D.7972 AUTHOR: BIBI,DOC PHYSICIAN: REFERRING PHYSICIAN: CAMILO BENTLEY MD DATE OF SERVICE: 09/15/18 Discharge Plan Patient Name: GENE PEREZ Facility: [facility]:[place] : 1950 Planned Disposition: Assisted Living Anticipated Discharge Date: 09/14/18 Discharge Date: 09/14/2018 Expected LOS: 2 Initial Reviewer: [email or web address] Initial Review Date: 09/12/2018 Generated: 09/15/18 1:33 pm DCP- Discharge Planning Updated by [email or web address]: Qiana Barillas on 09/12/18 3:[address] Patient Name: GENE PEREZ Admission Status: ER Accout number: [id number] Admission Date: 09-12-2018 : 1950 Admission Diagnosis: Attending: CAMILO BENTLEY Current LOS: 1 Anticipated DC Date: 09-14-2018 Planned Disposition: Assisted Living Primary Insurance: [facility] MEDICARE SOLUTIONS Discharge Planning Comments: CM met with patient to complete initial dc planning assessment. CM educated patient on the CM role and verbal consent given by patient to complete assessment. Patient lives at home alone and reports he is independent in his care at home. At discharge patient plans to return home and feels this is a safe discharge. Patient denied known discharge needs at this time. CM will continue to follow and will assist as needed with dc plans/needs. Construction Executive: Qiana Barillas RN, [facility] DCPIA - Discharge Planning Initial Assessment Updated by [email or web address]: Qiana Barillas on 09/12/18 4:16 pm * Is the patient Alert and Oriented? Yes * How many steps to enter\exit or inside your home? * PCP Dr. Parker * Pharmacy [facility] [address] * Preadmission Environment Home Alone * ADLs Independent * Equipment None * List name and contact numbers for known caregivers / representatives who currently or will assist patient after discharge: Hugh Perez - brother- [phone] Karelymichelle Ny - friend- [phone] * Verbal permission to speak to the caregivers and representatives has been obtained from the patient. Yes * Community resources currently utilized None * Additional services required to return to the preadmission environment? No * Can the patient safely return to the preadmission environment? Yes * Has this patient been hospitalized within the prior 30 days at any hospital? Yes Last DP export: 09/12/18 3:27 pm Patient Name: GENE PEREZ Page 93252 at 1233 All edits/amendments must be made on the electronic document DICTATION DATE: 09/15/18 1233 RECYCLING OR RUBBISH COLLECTOR: CONNOR 09/15/18 1233 RPT#: [id number] DC DATE:09/14/18 STATUS: DIS IN [facility] [address] [place] [address] END OF REPORT
== END 2018-09-14 13:25 | disposition home or self-care (01) | DRG 193 ==
LOC: D.ER 09:29 → D.M2 10:49 → D.EDHOLD 10:49 → D.M2 12:28
PROVIDERS: Family Medicine; Internal Medicine Cardiovascular Disease; ADMIT Internal Medicine Nephrology
DX: J18.1 Lobar pneumonia, unspecified organism (principal); I21.4 Non-ST elevation (NSTEMI) myocardial infarction; I50.30 Unspecified diastolic (congestive) heart failure; I11.0 Hypertensive heart disease with heart failure; I25.10 Atherosclerotic heart disease of native coronary artery without angina pectoris; Z95.5 Presence of coronary angioplasty implant and graft; N40.0 Benign prostatic hyperplasia without lower urinary tract symptoms; I25.5 Ischemic cardiomyopathy; E78.5 Hyperlipidemia, unspecified

== ENCOUNTER 2019-05-13 00:06 | Outpatient (CLI) | payer MEDICARE, MEDICAID ==
[~2019-05-13] VITALS: Ht 167.6 cm; Wt 70.5 kg
--- NOTE | ~2019-05-13 | HEMODYNAMI ---
PATIENT:GENE PEREZ MEDICAL RECORD: [id number] : 50 [facility] [id number] ADMISSION DATE: 05/13/19 Generatedon:05/13/201911:57 Patient name: GENE PEREZ Patient #: [id number] : 1950 Date of study: 05/13/2019 Page: Of Hemodynamic Procedure Report Patient Data Patient Demographics Procedure consent was obtained First Name: GENE Gender: Male Last Name: CHRIS : 1950 Patient #: [id number] Age: 69 year(s) Race: SSN: [id number] Additional ID: [id number] Contact details [address]: [address] [place] [address] State: [place] City: [place] Zip code: [address] Past Medical History Allergies: No known allergies Admission Admission Data Admission Date: 05/13/2019 Admission Time: 0:57 Arrival Date: 05/13/2019 Arrival Time: 0:57 Admit Source: Emergency Insurance Payor: Private department health insurance, Medicaid Room #: D.2129 Height (in.): 66.14 BSA: 1.79 (m2) Height (cm.): 168 BMI: 24.8 (kg/m2) Weight (lbs.): 154.32 Weight (kg.): 70 Lab Results Lab Result Date: 05/13/2019 Lab Result Time: 0:00 Biochemistry Name Units Result Min Max BUN mg/dl 21 --(----)-* 7 18 Creatinine mg/dl 1.2 --(---*)-- 0.6 1.3 eGFR ml/min 64.99417 *-(----)-- 90 120 NONAFRICAN CBC Name Units Result Min Max Hemoglobin g/dl 15.2 --(-*--)-- 13.5 17.5 Procedure Procedure Types Cath Procedure Diagnostic Procedure LHC LHC w/Coronaries FFR/IVUS FFR Initial FFR Additional Sedation Charges Moderate Sedation up to 30 minutes PCI Procedure Coronary Stent Coronary Stent Initial Coronary Atherectomy Atherectomy w/Stent Coronary Initial Procedure Description Procedure Date Procedure Date: 05/13/2019 Procedure Start Time: 11:22 Procedure End Time: 11:51 Procedure Staff Name Function Kemar Contreras MD Performing Physician Sri Pelaez RT Monitor Zonia Garibay RT Scrub Js Thornton RT Scrub Fay Herbert RN Nurse Efrain Vasquez RN Nurse Procedure Data Cath Procedure Fluoroscopy Diagnostic fluoroscopy Total fluoroscopy Time: 0 time: 0 min min Diagnostic fluoroscopy Total fluoroscopy dose: 915 dose: 915 mGy mGy Contrast Material Contrast Material Type Amount (ml) Isovue 300 122 Entry Location Entry Primary Successful Side Size Upsize Upsize Entry Closure Succes sful Closure Location (Fr) 1 (Fr) 2 (Fr) Remarks Device Remarks Femoral Right 5 Fr 6 Fr Exoseal artery Short Estimated blood loss: 5 ml Diagnostic catheters Device Type Used For End Catheter Placement MULTIPACK Pigtail 5 Fr LV Angiography catheter MULTIPACK JL 4.0 5Fr Left Coronary catheter Angiography MULTIPACK 3DRC 5Fr Right Coronary catheter Angiography Procedure Complications No complications Procedure Medications Medication Administration Route Dosage Oxygen etCO2 Nasal cannula 2 l/min Lidocaine 2% added to field 20 Heparin Flush Bag added to field 2 bags (1000units/500ml NS) 0.9% NaCl I.V. 100 ml/hr Versed I.V. 2 mg Fentanyl I.V. 100 mcg Heparin Bolus I.V. 4000 units Versed I.V. 1 mg Hemodynamics Rest BSA: 1.79 (m2) HGB: 15.2 (g/dl) O2 Consumption: Estimated: 201.88 (ml/min) O2 Co nsumption indexed: Estimated:112.78 (ml/min/m) Heart Rate: 62 (bpm) Pressure Samples Time Site Value (mmHg) Purpose Heart Use Rate(bpm) 11:23 LV 92/10,20 Snapshot 71 Snapshots Pre Cath Intra NCS Post Cath Vital Signs Time Heart Resp SPO2 etCO2 NIBP Rhythm Pain Sedation Rate (ipm) (%) (mmHg) (mmHg) Status Level (bpm) 11:08:00 65 21 98 27.8 Measuring NSR 0 (11) 10(A) , No pain 11:08:45 68 20 98 28.6 No Cuff NSR 0 (11) 10(A) , No pain 11:11:10 63 20 98 30.1 105/64(86) NSR 0 (11) 10(A) , No pain 11:15:16 66 19 98 31.6 107/65(86) NSR 0 (11) 10(A) , No pain 11:19:22 66 21 98 25.6 107/64(84) NSR 0 (11) 10(A) , No pain 11:23:26 66 21 97 27 105/65(83) NSR 0 (11) 10(A) , No pain 11:27:31 73 21 97 29.3 104/56(80) NSR 0 (11) 9(A) , No pain 11:31:35 76 21 97 25.5 103/63(79) NSR 0 (11) 9(A) , No pain 11:35:39 74 16 97 27 103/58(88) NSR 0 (11) 9(A) , No pain 11:39:42 76 22 97 26.3 97/58(80) NSR 0 (11) 9(A) , No pain 11:43:44 77 20 98 24.8 110/59(80) NSR 0 (11) 9(A) , No pain 11:47:50 78 23 98 27 110/62(81) NSR 0 (11) 9(A) , No pain 11:51:54 76 20 98 26.3 105/64(83) NSR 0 (11) 10(A) , No pain Medications Time Medication Route Dose Verified Delivered Reason Notes Effectiveness by by 11:06:09 Oxygen etCO2 2 Kemar Aponte used for Nasal l/min Ben Herbert RN procedure cannula 11:06:15 Lidocaine 2% added 20ml Kemar Reinoso for local to vial Ben Contreras MD anesthetic field 11:06:22 Heparin Flush added 2 Kemar Reinoso used for Bag to bags Ben Contreras MD procedure (1000units/500ml field NS) 11:06:30 0.9% NaCl I.V. 100 Kemar Tobiasie Per physician ml/hr Ben Herbert RN 11:21:10 Versed I.V. 2 mg Kemar Aponte for sedation Ben Herbert RN 11:21:25 Fentanyl I.V. 100 Kemar Buffie for sedation mcg Ben Herbert RN 11:28:19 Heparin Bolus I.V. 4000 Kemar Aponte for verif ied units Ben Herbert RN anticoagulation with dr contreras 11:33:50 Versed I.V. 1 mg Kemar Aponte for sedation Ben Herbert RN Procedure Log Time Note 10:43:05 Diagnostic Cath Status : Elective 10:43:25 Zonia Garibay RT(R) sent for patient. Start room use. 10:43:26 Time tracking: Regular hours (M-F 7:00 - 5:00) 10:43:30 Plan of Care:Hemodynamics will remain stable., Cardiac rhythm will remain stable., Comfort level will be maintained., Respiratory function will remain adequate., Patient/ family verbilizes understanding of procedure., Procedure tolerated without complication., Recovers from procedure without complications.. 10:47:21 Informed consent obtained and on chart 10:48:33 Admit Source: Emergency department 10:48:42 Arrival Date: 05/13/2019 12:57:00 AM 10:48:48 Insurance Payor : Private health insurance, Medicaid 10:49:03 Patient Height : 66.14 inches 10:49:07 Patient Weight : 154.32 lbs 10:49:41 Lab Result : Hemoglobin 15.2 g/dl 10:49:41 Lab Result : eGFR NONAFRICAN 64.88321 ml/min 10:49:41 Lab Result : BUN 21 mg/dl 10:49:41 Lab Result : Creatinine 1.2 mg/dl 10:49:51 2) 60-89 Mildly reduced kidney function, and other findings (as for stage 1) point to kidney disease. 10:50:11 Maximum allowable contrast dose (3.7 X eGFR X 0.75)177 ml. 10:50:28 ACC Patient presents with Unstable Angina CCS Anginal Class 4--Inability to carry out any physical activity w/o angina. Angina may occur at rest. 10:50:32 ACCPatient has been prescribed/administered the following anti-anginal medication within the last 2 weeks: Long-Acting Nitrates 10:50:36 Procedure Status Urgent Heart Cath (IP). 10:53:03 Patient received from Med II to CCL 2 Alert and oriented. Tansferred to table in Supine position. 10:53:05 Warm blankets applied, and shashi hugger turned on for patient comfort. 10:53:05 Correct patient and procedure confirmed by team. 10:53:06 ECG and BP/O2 sat monitors applied to patient. 10:59:49 Vital chart was started 10:59:51 Baseline sample Acquired. 10:59:54 Rhythm: sinus rhythm 10:59:56 Full Disclosure recording started 11:00:01 H&P Date Dictated: 05/13/2019 New H&P dictated by physician.. 11:00:02 Pre-procedure instructions explained to patient. 11:00:03 Pre-op teaching completed and patient verbalized understanding. 11:00:10 Family unavailable. 11:00:12 Patient NPO since Midnight. 11:00:15 Is the patient allergic to Iodine/contrast media? No. 11:00:16 Was the patient premedicated? No 11:01:35 Is patient on blood thinner?No 11:01:36 Patient diabetic? No. 11:01:39 Previous problem with sedation/anesthesia? No ? 11:01:46 Snore? Yes 11:01:49 Sleep apnea? No 11:01:51 Deviated septum? No 11:01:52 Opens mouth fully? Yes 11:01:53 Sticks out tongue? Yes 11:01:55 Airway obstruction? No ? 11:02:00 Dentures? Yes out 11:02:03 Pre procedure: right dorsailis pedis pulse 2+ Normal; easily identifiable; not easily obliterated 11:02:05 Pre procedure: left dorsailis pedis pulse 2+ Normal; easily identifiable; not easily obliterated 11:02:08 Patient pain scale 0/10 ?. 11:03:35 IV patent on arrival in left forearm with 0.9% NaCl at KVO. 11:03:37 Lab results completed and on chart. 11:03:41 Right groin area was prepped with chlora-prep and draped in sterile fashion 11:03:42 Alarms reviewed by R. N. 11:03:42 Sharps counted by scrub and verified by R.N. 11:03:45 Physician arrived 11:03:45 --------ALL STOP TIME OUT------ 11:03:46 Final Timeout: patient, procedure, and site verified with staff and physician. All members of the team are in agreement. 11:03:47 Right groin site verified by team. 11:03:50 Fire Safety Assessment: A--An alcohol-based skin anteseptic being used preoperatively., C--Open oxygen or nitrous oxide is being used., D--An ESU, laser, or fiber-optic light is being used. 11:03:53 Physical assessment completed. ASA score P 2 - A patient with mild systemic disease as per Kemar Contreras MD. 11:03:57 Sedation plan: IV Moderate Sedation Medication:Versed, Fentanyl 11:04:10 Use device set Femoral Dx 11:04:12 ACIST Syringe (63151) opened to sterile field. 11:04:12 Bag Decanter (2002S) opened to sterile field. 11:04:12 Medline Cath Pack ([id number]) opened to sterile field. 11:04:13 ACIST Hand Control (75016) opened to sterile field. 11:04:14 ACIST Manifold (07581) opened to sterile field. 11:04:14 DIAGNOSTIC Multipack 5Fr catheter set ([id number]) opened to sterile field. 11:04:15 Tegaderm 4 x 4 (1626W) opened to sterile field. 11:04:16 SHEATH 5FR Colo (DTY447) opened to sterile field. 11:04:17 EMERALD Guide Wire (868-079) opened to sterile field. 11:06:09 Oxygen 2 l/min etCO2 Nasal cannula was administered by Fay Herbert RN; used for procedure; 11:06:15 Lidocaine 2% 20ml vial added to field was administered by Kemar Contreras MD; for local anesthetic; 11:06:22 Heparin Flush Bag (1000units/500ml NS) 2 bags added to field was administered by Kemar Contreras MD; used for procedure; 11:06:30 0.9% NaCl 100 ml/hr I.V. was administered by Fay Herbert RN; Per physician; 11:21:10 Versed 2 mg I.V. was administered by Fay Herbert RN; for sedation; 11:21:15 Procedure started. 11:21:25 Fentanyl 100 mcg I.V. was administered by Fay Herbert RN; for sedation; 11:22:28 Local anesthetic to right femoral artery with Lidocaine 2% by Kemar Contreras MD.INITIAL ACCESS ONLY 11:22:38 A 5 Fr sheath was inserted into the Right Femoral artery 11::49 A MULTIPACK Pigtail 5 Fr catheter was advanced over the wire and used for LV Angiography. 11:24:02 LV hemodynamics recorded. 11:24:08 LV gram done using GARCIA 11:24:11 Injector settings: Ml/sec: 5, Volume: 15, 11:24:19 EF : 50 % 11:24:24 Catheter removed. 11:24:32 A MULTIPACK JL 4.0 5Fr catheter was advanced over the wire and used for Left Coronary Angiography. 11:25:03 LCA angiography performed. 11:25:11 Injector settings: Ml/sec: 3, Volume: 6, 11:26:02 Catheter removed. 11:26:09 A MULTIPACK 3DRC 5Fr catheter was advanced over the wire and used for Right Coronary Angiography. 11:26:17 RCA angiography performed. 11:26:20 Injector settings: Ml/sec: 3, Volume: 6, 11:27:09 SHEATH 6FR Colo (AQT226) opened to sterile field. 11:27:10 INFLATOR Merit BasixCompak (HN9509) opened to sterile field. 11:27:10 [place] Verrata Plus pressure wire (30946Y) opened to sterile field. 11:27:16 GUIDE 6FR XBLAD 3.5 catheter ([id number]) opened to sterile field. 11:27:22 Catheter removed. 11:27:23 Proceeding to intervention. 11:28:19 Heparin Bolus 4000 units I.V. was administered by Fay Herbert RN; for anticoagulation; verified with dr contreras 11:28:20 Sheath upsized to a 6 Fr Short. 11:28:45 6 Fr xblad 3.5 guide catheter was inserted over the wire 11:29:29 FFR/IFR wire advanced. 11:29:31 Baseline FFR 1. 11:33:27 mCirc lesion measured at 0.93 with IFR 11:33:45 Wire redirected to lad. 11:33:50 Versed 1 mg I.V. was administered by Fay Herbert RN; for sedation; 11:34:23 pLAD lesion measured at 0.85 with IFR 11:35:16 CHOICE PT Extra Support 182cm wire ([id number]) opened to sterile field. 11:35:52 LASER ELCA 0.9 Rx atherectomy catheter (045669) opened to sterile field. 11:37:00 Place stent Inflation Number: 1 A BRYANT RX 3.0 x 18 stent ([id number]) was prepped and advanced across the Prox LAD 75. The stent was deployed at 15 ELLI for 0:10 (min:sec) 0. 11:37:22 Stent catheter was removed intact over wire. 11:37:22 Wire removed. 11:37:22 Guide catheter removed. 11:38:40 GUIDE 6FR HS II catheter ([id number]) opened to sterile field. 11:39:06 6 Fr hs 2 guide catheter was inserted over the wire 11:39:11 choice pt wire advanced. 11:39:13 Wire advanced across lesion. 11:39:40 Inflation number: 1 The stent balloon was then re-inflated across the Mid RCA to 21 ELLI for 0:10 (min:sec) . 11:39:45 Inflation number: 2 The stent balloon was then re-inflated across the Mid RCA to 21 ELLI for 0:10 (min:sec) . 11:40:03 Inflation number: 1 The stent balloon was then re-inflated across the Prox RCA to 21 ELLI for 0:10 (min:sec) . 11:40:22 Stent catheter was removed intact over wire. 11:40:32 Laser pass to mRCA with Fluence of 80 and Rate of 40. 11:45:30 Laser catheter removed. 11:47:58 Place stent Inflation Number: 3 A BRYANT RX 3.5 x 12 stent ([id number]) was prepped and advanced across the Mid RCA 80. The stent was deployed at 17 ELLI for 0:10 (min:sec) . 11:48:08 Inflation number: 4 The stent balloon was then re-inflated across the Mid RCA to 17 ELLI for 0:10 (min:sec) . 11:48:29 Stent catheter was removed intact over wire. 11:48:29 Wire removed. 11:48:30 Guide catheter removed. 11:48:35 Laser total pulses delivered: 3600 11:48:41 Laser total treatment time: 1 minutes 30 seconds 11:49:29 EXOSEAL 6Fr (EX600) opened to sterile field. 11:49:40 Sheath removed intact; hemostasis achieved with Exoseal to the Right Femoral artery. 11:49:42 Procedure ended.(Physican Out) 11:50:03 Fluoroscopy time 00.00 minutes. 11:50:07 Flurop Dose total: 915 11:50:07 Fluoroscopy dose: 915 mGy 11:50:15 Dose Area Product 47172 mGy/cm. 11:50:19 Contrast amount:Isovue 300 122ml. 11:50:21 Sharps counted by scrub and verified by R.N. 11:50:22 Insertion/operative site no bleeding no hematoma. 11:50:25 Post-op/insertion site Right Femoral artery dressed using a 4 x 4 and Tegaderm. 11:50:27 Post Procedure Pulses reassessed and unchanged 11:50:31 Post procedure rhythm: unchanged. 11:50:33 Estimated blood loss: 5 ml 11:50:35 Post procedure instruction explained to patient.Patient verbalizes understanding. 11:50:35 Patient needs reinforcement of post procedure teaching. 11:51:39 Procedure type changed to Cath procedure, Diagnostic procedure, LHC, LHC w/Coronaries, FFR/IVUS, FFR Initial, FFR Additional, Sedation Charges, Moderate Sedation up to 30 minutes, PCI procedure, Coronary Stent, Coronary Stent Initial, Coronary Atherectomy, Atherectomy w/Stent Coronary Initial 11:51:41 Procedure and supply charges have been captured, reviewed, submitted and are correct. 11:51:45 Procedure Complication : No complications 11:51:48 Vital chart was stopped 11:51:49 See physician's report for complete and final results. 11:51:53 Report given to [facility]. 11:51:56 Patient transfered to [facility] with Stretcher. 11:51:58 Procedure ended. 11:51:58 Full Disclosure recording stopped 11:52:10 ACC-PCI Only Patient was given prescriptions, or instructed by Kemar Contreras MD to start/continue the following medications upon discharge: Plavix 11:52:12 End room use (Document Last) Intervention Summary Intervention Notes Time ActionType Lesion and Equipment Used Action# Pressure Duration Attributes 11:37:00 Place stent Prox LAD BRYANT RX 3.0 x 1 15 00:10 18 stent ([id number]) 11:39:40 Reinflate Mid RCA BRYANT RX 3.0 x 1 21 00:10 stent 18 stent balloon ([id number]) 11:39:45 Reinflate Mid RCA BRYANT RX 3.0 x 2 21 00:10 stent 18 stent balloon ([id number]) 11:40:03 Reinflate Prox RCA BRYANT RX 3.0 x 1 21 00:10 stent 18 stent balloon ([id number]) 11:47:58 Place stent Mid RCA BRYANT RX 3.5 x 3 17 00:10 12 stent ([id number]) 11:48:08 Reinflate Mid RCA BRYANT RX 3.5 x 4 17 00:10 stent 12 stent balloon ([id number]) Device Usage Item Name Manufacture Quantity Catalog Number Hospital Part Current Minimal Lot# / Charge Number Stock Stock Serial# Code ACIST Syringe Acist 1 00570 129225 060375 731863 20 (54795) Medical Systems Inc Bag Decanter Microtek 1 133610 11726 428004 5 () Medical Inc. Medline Cath Medline 1 [id number] 809925 71474 175345 5 Pack ([id number]) ACIST Hand Acist 1 02935 043561 759558 586839 5 Control Medical (72072) Systems Inc ACIST Manifold Acist 1 60366 990035 529383 206750 5 (23577) Medical Systems Inc DIAGNOSTIC Cardinal 1 [id number] 268034 96463 267068 30 Multipack 5Fr Health catheter set (ZD4749) Tegaderm 4 x 4 3M 1 1626W 257076 438051 010884 5 (1626W) SHEATH 5FR Terumo 1 UID153 633598 175058 778704 5 Colo (ANI151) EMERALD Guide Cardinal 1 502-455 706930 669608 735894 5 Wire (502-455) Health MULTIPACK Cardinal 1 306710 5 Pigtail 5 Fr Health catheter MULTIPACK JL Cardinal 1 800312 5 4.0 5Fr Health catheter MULTIPACK 3DRC Cardinal 1 122216 5 5Fr catheter Health SHEATH 6FR Terumo 1 GPI332 262300 087386 339300 40 Colo (ROU865) INFLATOR Merit Merit 1 UD0199 391824 572535 858699 15 ReserveOutEncompass HealthCantab Biopharmaceuticals [facility] (ER1151) [place] 1 07600K 083592 538473432 934852 5 Verrata Plus pressure wire (52816N) GUIDE 6FR Cardinal 1 [id number] 459238 849492 707276 10 XBLAD 3.5 Health catheter (17784949) CHOICE PT [place] 1 [id number] 866868 809705 560468 5 Extra Support Scientific 182cm wire ([id number]) LASER ELCA 0.9 Gabby 1 110-004 364004 491414 718863 5 Rx atherectomy Healthcare catheter (853226) (224810) BRYANT RX 3.0 x Medtronic 1 [id number] 332673 6283451 715230 5 [id number] 18 stent ([id number]) GUIDE 6FR HS Medtronic 1 [id number] 725392 00746 233837 1 II catheter (MQ0BZQG) BRYANT RX 3.5 x Medtronic 1 [id number] 973317 6434256 984119 5 [id number] 12 stent ([id number]) EXOSEAL 6Fr Cardinal 1 EX600 476370 020945 157406 10 (EX600) Health Signature Audit [place] Stage Time Signature Unsigned Intra-Procedure 05/13/2019 Sri Pelaez 11:57:28 AM RT(R) Signatures Performing Physician : Signature : Kemar Contreras MD Date : Time : Monitor : Sri Pelaez RT Signature : Date : Time : Nurse : Fay Herbert RN Signature : Date : Time : Nurse : Efrain Vasquez Signature : RN Date : Time : [address] [place] [address]
[~2019-05-13 00:06] MED LIST changes: +LEVAQUIN750 MG PO; +NORCO 10-325 TA1 TAB PO
[2019-05-13 00:16] VITALS: BP 118/55
[2019-05-13 00:41] LABS: BASOPHILS 0.2 % (0-2); EOSINOPHILS 0.4 % (0-7); HEMATOCRIT 42.7 % (42.0-54.0); HEMOGLOBIN 15.2 g/dL (13.5-17.5); IMMATURE GRANULOCYTES 0.3 % (0-5); LYMPHOCYTES 8.8 % (15-50); MCHC 35.6 g/dL (31.0-37.0); MCV 98.4 fL (80.0-100.0); MEAN PLATELET VOLUME 9.7 fL (7.4-10.4); MONOCYTES 9.8 % (2-11); NEUTROPHILS 80.5 % (40-80); PLATELET COUNT 196 10x3/uL (130-400); RBC 4.34 10x6/uL (4.20-6.10); RDW 12.7 % (11.5-14.5); WBC 12.9 10x3/uL (4.8-10.8)
[2019-05-13 00:50] LABS: ALBUMIN 3.2 g/dL (3.4-5.0); ALKALINE PHOSPHATASE 80 U/L (46-116); ALT (SGPT) 17 U/L (10-68); CALC OSMOLALITY 282 mosm/kg (275-300); CALCIUM 8.9 mg/dL (8.5-10.1); CARBON DIOXIDE 26.6 mmol/L (21.0-32.0); CHLORIDE - SERUM 106 mmol/L (98-107); CREATININE - SERUM 1.2 mg/dL (0.6-1.3); GLUCOSE 137 mg/dL (74-106); POTASSIUM - SERUM 4.7 mmol/L (3.5-5.1); PROTEIN - SERUM 6.8 g/dL (6.4-8.2); SODIUM 139 mmol/L (136-145); UREA NITROGEN 21 mg/dL (7-18); eGFR NON AFRICAN AMERICAN 64 mL/min (90-120)
[2019-05-13 00:52] LABS: APTT 27.9 SECONDS (22.8-39.4); INR 1.04 (0.85-1.17); PROTIME 13.1 SECONDS (11.6-15.0)
[2019-05-13 01:02] LABS: CKMB 0.9 U/L (0.0-3.6); CREATINE KINASE 68 UL (21-232); MAGNESIUM - SERUM 1.8 mg/dL (1.8-2.4)
[2019-05-13 01:03] LABS: TROPONIN-I < 0.017 ng/mL (0.000-0.060)
[2019-05-13 02:59] VITALS: BP 114/55; Ht 167.6 cm; Wt 70.5 kg
[2019-05-13 04:30] VITALS: BP 116/57
[2019-05-13 07:19] LABS: CKMB 0.8 U/L (0.0-3.6); CREATINE KINASE 58 UL (21-232); TROPONIN-I < 0.017 ng/mL (0.000-0.060)
[2019-05-13 07:56] VITALS: BP 100/45
[2019-05-13 13:45] VITALS: BP 120/60
--- NOTE | 2019-05-14 06:55 | MORECARE ---
CASE MANAGEMENT DISCHARGE SUMMARY PATIENT: GENE PEREZ UNIT: [id number] ADM DATE: 05/13/19 AGE: 69 : 50 SEX: M ROOM/BED: D.5859 AUTHOR: [place] MTZ PHYSICIAN: REFERRING PHYSICIAN: JESSICA WINN MD DATE OF SERVICE: 05/14/19 Discharge Plan Patient Name: [facility]ENE [facility]EREZ [facility] : 1950 Planned Disposition: Home Anticipated Discharge Date: 05/13/19 Discharge Date: 05/13/2019 Expected LOS: 1 Initial Reviewer: [email or web address] Initial Review Date: 05/14/2019 Generated: 05/14/19 7:54 am Patient Name: GENE PEREZ Page [id number] at 0655 All edits/amendments must be made on the electronic document DICTATION DATE: 05[birth year]14/1954 ASSEMBLER METAL FURNITURE: CONNOR 05/14/19 0654 RPT#: [id number] DC DATE:05/13/19 STATUS: DIS IN [facility] [address] [place] [address] END OF REPORT
--- NOTE | 2019-05-20 14:31 | OP ---
PATIENT NAME: GENE PEREZ MEDICAL RECORD: [id number] :50 LOCATION:D.CAT ADMISSION DATE: SURGEON: JESSICA WINN MD DATE OF OPERATION: 05/13/2019 PROCEDURES: 1. PTCA stent RCA. 2. Laser atherectomy RCA. 3. PTCA stent LAD. 4. IFR LAD. 5. IFR left circumflex. 6. Left heart catheterization. 7. Selective coronary angiography. 8. Left ventriculogram. INDICATION: Angina and coronary artery disease. PROCEDURE PERFORMED: After informed consent was obtained and after a detailed description of risks, benefits as well as alternative therapies, the patient elected to proceed with angiogram and angioplasty. FINDINGS: The left ventriculogram was performed in standard 30-degree GARCIA view, reveals good cardiac wall motion, ejection fraction 50% to 55%. SELECTIVE CORONARY ANGIOGRAPHY: 1. Left main has no significant angiographic disease. 2. Left anterior descending has 70% to 75% stenosis proximally and IFR is abnormal at 0.85. 3. Left circumflex had a questionable stenosis in the mid vessel with greater than 50%; however, IFR was normal. 4. The right coronary artery has previously placed stents with 95% in-stent restenosis in the proximal mid vessel, 90% in-stent restenosis in the mid vessel. PTCA STENT OF THE LAD: The stent used was a 3.0 x 18 mm Naveed. Result was 0% residual stenosis. LASER ATHERECTOMY PTCA STENT OF THE RCA: Multiple passes were made with the laser catheter at 80/40. This was then stented with a 3.5 x 12 mm Canvas stent. Result was 0% residual stenosis. OVERALL IMPRESSION: Successful PTCA stent of LAD and RCA, both going from 70% to 95% initial stenosis to 0% residual. TRANSINT:[id number] Voice Confirmation ID: [id number] DOCUMENT ID: [id number] JESSICA WINN MD at 1431 CC: [id number] DICTATION DATE: 05/13/19 1157 MEAT HANGER: 05/13/19 1206 DEP CLI 05/13/19 [place] [address]
--- NOTE | 2019-05-20 14:31 | DS ---
PATIENT:GENE CARCAMO :50 MEDICAL RECORD: [id number] DISCHARGE SUMMARY ADMISSION DATE: 05/13/19 DISCHARGE DATE: 05/13/19 DISCHARGE DIAGNOSES: 1. Unstable angina. 2. Coronary artery disease. 3. Percutaneous transluminal coronary angioplasty stent right coronary artery and left anterior descending this admission. HOSPITAL COURSE: Mr. Carcamo presents with unstable anginal symptomatology, found to have significant disease of the LAD and RCA, underwent successful PTCA stent of both territories with no further anginal symptomatology. He was discharged home. Continue his medications as he is already on aspirin and Plavix. We will follow up with [facility] in 1 month. TRANSINT:[id number] Voice Confirmation ID: [id number] DOCUMENT ID: [id number] JESSICA WINN MD at 1431 CC: [id number] DICTATION DATE: 05/13/19 1155 CLASSIFICATION AND TREATMENT DIRECTOR: 05/14/19 0220 DEP CLI 05/13/19 [id number] [place] [address]
--- NOTE | 2019-05-20 14:31 | HP ---
PATIENT: GENE PEREZ MEDICAL RECORD: [id number] ACCOUNT: [id number] LOCATION:[facility] : 50 ADMISSION DATE: 05/13/19 PCP: JADON LEON HISTORY AND PHYSICAL EXAMINATION DIAGNOSES: 1. Unstable angina. 2. Coronary artery disease. 3. Previous multivessel percutaneous transluminal coronary angioplasty and stent. 4. Hypertension. 5. Hyperlipidemia. 6. Shortness of breath, dyspnea on exertion. HISTORY OF PRESENT ILLNESS: Mr. Perez for the past few days has had increasing episodes of chest discomfort requiring multiple sublingual nitro. He has taken multiple sublingual nitro tonight for recurrent chest discomfort, it is just like that of his previous angina. His last stenting was undertaken in September. Prior to that, he has had [address] Bravo in [place]. He has been told that he has a valvular heart problem as well. We do not know the exact etiology of this. Over the past week he has had increasing dyspnea on exertion, shortness of breath and the chest discomfort and the shortness of breath are the same symptoms he has had when he has had hemodynamically significant coronary artery disease. He is now at class IV anginal symptomatology taking multiple sublingual nitro at rest. He has a family history of coronary artery disease, hypertension, and hyperlipidemia. PHYSICAL EXAMINATION: GENERAL APPEARANCE: Well nourished, well developed, appears stated age. Level of distress, comfortable. PSYCHIATRIC: Mental status, alert, normal affect. Orientation, oriented to time, place and person. EYES: Lids and conjunctiva, noninjected. No discharge, no pallor. ENT: Lips, teeth, gums, normal dentition. Oropharynx, no cyanosis, no pallor. NECK: Carotid arteries, bilateral normal upstroke, no bruits, no thrills. JUGULAR VEINS: No jugular venous pressure or distention. CERVICAL LYMPH NODES: Nontender, nonenlarged. THYROID: Not enlarged. Nontender. No nodules. LUNGS: Respiratory effort, unlabored. CHEST: Normal curvature. No thoracic deformity. No chest wall tenderness. Percussion, resonant. Auscultation, clear. No wheezes, no rales, no rhonchi. CARDIOVASCULAR: Precordial exam, nondisplaced. No heaves or pericardial thrills. Rate and rhythm, regular. Heart sounds, normal S1, normal S2. No S3, no gallop, no rub. Systolic murmur, not heard. Diastolic murmur, not heard. EXTREMITIES: No cyanosis, no edema. Peripheral pulses, full and equal in all extremities, except as noted. No bruits appreciated. ABDOMEN: Soft, nondistended. Normal aorta. No bruit. Nontender. No masses. Liver, nontender, no hepatomegaly. Spleen, nontender, no splenomegaly. MUSCULOSKELETAL: No joint tenderness. No joint swelling. No erythema. NEUROLOGICAL: Normal gait, normal strength, normal tone. SKIN: Warm and dry. OVERALL IMPRESSION: Unstable angina class IV with recurrent multiple episodes of chest pain in a patient with multivessel percutaneous transluminal coronary angioplasty and stent in the past. HISTORY AND PHYSICAL [id number] GENE PEREZ We will proceed with coronary angiography in the a.m. TRANSINT:[id number] Voice Confirmation ID: [id number] DOCUMENT ID: [id number] JESSICA WINN MD at 1431 CC: [id number] DICTATION DATE: 05/13/19215 ROLL GRINDER OPERATOR: 05/13/19227 DEP CLI 05/13/19 [place] [id number] [place] [address]
--- NOTE | 2019-05-20 14:31 | EC ---
PATIENT:GENE PEREZ DATE OF SERVICE: 05/13/19 SEX: M MEDICAL RECORD: [id number] DATE OF : 50 LOCATION:[facility] AGE OF PATIENT: 69 ADMISSION DATE: 05/13/19 REFERRING PHYSICIAN: INTERPRETING PHYSICIAN: JESSICA CONTRERAS MD ECHOCARDIOGRAM REPORT ECHO CHARGES 4 ECHO COMPLETE Date: 05/13/19 CLINICAL DIAGNOSIS: CHEST PAIN,MURMUR ECHOCARDIOGRAPHIC MEASUREMENTS (adult normal given) AC root (d.<3.7cm) 3.7 cm LV Septum d (<1.2 cm> 1.3 cm Valve Excursion 1.8 cm LV Septum (systole) 1.6 cm Left Atria (s.<4.0cm> 3.9 cm LVPW d(<1.2cm) 1.4 cm RV (d.<2.3cm) 3.5 cm LVPW (sytole) 1.7 cm LV diastole(<5.6CM) 4.7 cm MV E-F(>70mm/sec) cm LV systole 3.3 cm LVOT Diameter 2.0 cm MV exc.(>10mm) 1.5 cm Est.ejection fraction (50-75%) % DOPPLER: LVIT cm/sec A 73.0 cm/sec E 59.0 cm/sec LA cm/sec RVSP 26 mmHg LVOT 85 cm/sec AOP1/2T m/s Asc. Ao 103 cm/sec RVOT 85 cm/sec RA cm/sec PA 83 cm/sec AV Gradient Peak 4.26 mmHg AV Mean 2.27 mmHg AV Area 2.3 cm MV Gradient Peak 2.99 mmHg MV Mean 1.39 mmHg MV Area cm COMMENTS: Staff Physical Therapy Assistant: Katelynn FREGOSO Obstetrician/Gynecologist: 1 Dr. Contreras TAPE# PACS Pericardial Effusion N DATE OF SERVICE: 05/13/2019 PROCEDURE: Echocardiogram. FINDINGS: 1. Left ventricular chamber size is within normal limits. Left ventricular systolic function is normal. Overall ejection fraction 55% to 60%. 2. Left atrium, right atrium, and right ventricular chamber sizes are within normal limits. 3. Valvular structures have normal structure and motion. ECHOCARDIOGRAM REPORT [id number] GENE PEREZ 4. Doppler interrogation reveals mild tricuspid regurgitation, no other valvular insufficiency or stenosis. 5. No evidence of pericardial effusion or left ventricular thrombus. TRANSINT:[id number] Voice Confirmation ID: [id number] DOCUMENT ID: [id number] JESSICA CONTRERAS MD at 1431 CC: [id number] DICTATION DATE: 05/14/19 1216 REDUCTION FURNACE OPERATOR: 05/14/19 1234 DEP CLI 05/13/19 [place] [id number] [place] [id number]
== END 2019-05-13 16:50 | disposition home or self-care (01) ==
LOC: OBSVTIME → D.CATH 00:06 → D.ER 00:06 → D.M2 00:57 → D.ER 00:57 → D.M2 00:57 → OBSVTIME 00:57 → D.ER 01:39 → EDSTATUS 08:12 → D.CATH 16:50 → D.M2 16:50
PROVIDERS: Emergency Medicine; ATTEND Internal Medicine Interventional Cardiology
DX: I25.110 Atherosclerotic heart disease of native coronary artery with unstable angina pectoris (principal); I10 Essential (primary) hypertension; R06.02 Shortness of breath; R78.5 Finding of other psychotropic drug in blood; R06.00 Dyspnea, unspecified
CPT/HCPCS: 93458; 93571; 93572; C9602; C9600